=== PATIENT | female | born 1965 | race Caucasian/White ===

== ENCOUNTER 2017-10-14 16:08 | Inpatient (IN) | payer MEDICAID ==
[2014-09-24 03:47] VITALS: BMI 17.8
--- NOTE | ~2017-10-14 | CN ---
PATIENT NAME:PATRICK MCKENNA MEDICAL RECORD: [id number] : 69 LOCATION:[facility] ADMIT DATE: 10/14/17 ACCOUNT: [id number] CONSULTING PHYSICIAN: MARJORIE ELLIOTT MD REFERRING PHYSICIAN: JULIETA HANSEN MD DATE OF CONSULTATION: 10/15/2017 IDENTIFYING DATA: The patient is 52 years old and she is admitted to the hospital on a voluntary basis. CHIEF COMPLAINT: "I don't know why I did something so foolish." HISTORY OF PRESENT ILLNESS: The patient came to the Emergency Room after having taken an overdose. She says that she took some of her home medicines, which include Seroquel. She denies any thoughts to harm herself now. She says she was not sure what she was trying to do at that time. She has been at the hospital for over 24 hours and has not had any further suicidal thoughts. She endorses a lot of depressive symptoms. Her urine drug screen is clean. She says her unhappiness is related to the fact that her son is in custodial and is going to be there for a very long time. She also says she is unhappy because her father a few months ago. MENTAL STATUS EXAMINATION: The patient is awake, alert and oriented to person, place, time, and situation. Her mood is depressed. Her affect is constricted. Thought processes are circumstantial. Memory, concentration, and abstraction abilities are moderately impaired and she denies any active intent to harm herself or others as well as overt psychotic symptoms. ASSESSMENT: 1. Major depression. 2. 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 PLAN: At this time, the patient will be maintained on current medications, which I have reviewed. Her long-term prognosis is guarded. She has been offered inpatient hospitalization, which she declines. I have very strongly encouraged her to reconsider and she has declined. In weighing the relative risks and benefits of this situation, I do not think she meets current criteria for an involuntary hold and I am going to allow her to go home. She does have an appointment with [facility]. She is an active patient there and actively sees a therapist there. She does not have a history of overdose or trying to hurt herself in any other way. She does have a history of psychiatric disease and is followed on an outpatient basis as mentioned above. TRANSINT:[id number] Voice Confirmation ID: [id number] DOCUMENT ID: [id number] MARJORIE ELLIOTT MD at 1418 CC: [id number] DICTATION DATE: 10/15/171835 QUILTER FIXER: 10/16/17 0125 DIS IN 10/15/17 [place] [id number] [place] [id number]
[~2017-10-14 16:08] MED LIST: ATIVAN1 MG; CARDIZEM60 MG PO; DEPAKOTE250 MG PO; HYDROCHLOROTHIA50 MG; IMDUR30 MG PO; LAMICTAL25 MG; NEURONTIN 300300 MG PO; PAXIL20 MG PO; PRAVACHOL40 MG PO; PROAIR HFA8.5 GM INH; SEROQUEL100 MG PO
[2017-10-14 16:29] LABS: BASOPHILS 0.4 % (0-2); EOSINOPHILS 2.7 % (0-7); HEMATOCRIT 38.1 % (36.0-48.0); HEMOGLOBIN 13.5 g/dL (12-16); IMMATURE GRANULOCYTES 0.4 % (0-5); LYMPHOCYTES 26.2 % (15-50); MCHC 35.4 g/dL (31.0-37.0); MONOCYTES 10.1 % (2-11); NEUTROPHILS 60.2 % (40-80); PLATELET COUNT 248 10x3/uL (130-400); RBC 3.97 10x6/uL (4.00-5.40); RDW 12.8 % (11.5-14.5); WBC 7.2 10x3/uL (4.8-10.8)
[2017-10-14 16:47] LABS: ALBUMIN 3.7 g/dL (3.4-5.0); BILIRUBIN - TOTAL 0.36 mg/dL (0.2-1.3); CALCIUM 8.8 mg/dL (8.5-10.1); CARBON DIOXIDE 26.4 mmol/L (21.0-32.0); CREATININE - SERUM 0.9 mg/dL (0.6-1.3); POTASSIUM - SERUM 4.4 mmol/L (3.5-5.1); PROTEIN - SERUM 7.3 g/dL (6.4-8.2); VALPROIC ACID (DEPAKOTE) 52.9 ug/mL (50.0-100.0)
[2017-10-14 16:52] LABS: APPEARANCE HAZY (CLEAR); BILIRUBIN NEGATIVE (NEGATIVE); COLOR YELLOW (YELLOW); GLUCOSE NEGATIVE (NEGATIVE); KETONE NEGATIVE (NEGATIVE); NITRITE NEGATIVE (NEGATIVE); PROTEIN NEGATIVE (NEGATIVE); SPECIFIC GRAVITY 1.005 (1.005-1.020); UROBILINOGEN NORMAL (NORMAL)
[2017-10-14 16:57] LABS: HCG SERUM NEGATIVE (NEGATIVE)
[2017-10-14 17:06] LABS: UDS - AMPHET NEGATIVE QUAL (NEGATIVE); UDS - BARB NEGATIVE QUAL (NEGATIVE); UDS - BENZO NEGATIVE QUAL (NEGATIVE); UDS - COCAINE NEGATIVE QUAL (NEGATIVE); UDS - OPIATE NEGATIVE QUAL (NEGATIVE); UDS - PCP NEGATIVE QUAL (NEGATIVE); UDS - THC NEGATIVE QUAL (NEGATIVE)
[2017-10-15 05:54] LABS: BASOPHILS 0.8 % (0-2); EOSINOPHILS 4.5 % (0-7); HEMATOCRIT 35.7 % (36.0-48.0); HEMOGLOBIN 12.3 g/dL (12-16); IMMATURE GRANULOCYTES 0.2 % (0-5); MCH 33.2 pg (26.0-34.0); MCHC 34.5 g/dL (31.0-37.0); MCV 96.2 fL (80.0-100.0); MONOCYTES 9.4 % (2-11); NEUTROPHILS 53.1 % (40-80); PLATELET COUNT 265 10x3/uL (130-400); RBC 3.71 10x6/uL (4.00-5.40)
[2017-10-15 05:59] LABS: WBC 4.9 10x3/uL (4.8-10.8)
[2017-10-15 06:19] LABS: CALC OSMOLALITY 273 mosm/kg (275-300); CALCIUM 7.9 mg/dL (8.5-10.1); CARBON DIOXIDE 21.9 mmol/L (21.0-32.0); CHLORIDE - SERUM 103 mmol/L (98-107); CREATININE - SERUM 0.7 mg/dL (0.6-1.3); GLUCOSE 115 mg/dL (74-106); POTASSIUM - SERUM 4.1 mmol/L (3.5-5.1); SODIUM 136 mmol/L (136-145); UREA NITROGEN 15 mg/dL (7-18); eGFR NON AFRICAN AMERICAN > 90 mL/min (90-120)
== END 2017-10-15 14:48 | disposition left against medical advice (07) | DRG 917 ==
LOC: D.ER 16:08 → D.EDHOLD 18:35
PROVIDERS: Family Medicine
PROC: 0T9B70Z Drainage of Bladder with Drainage Device, Via Natural or Artificial Opening (ICD-10-PCS; principal; 2017-10-14)
DX: T43.592A Poisoning by other antipsychotics and neuroleptics, intentional self-harm, initial encounter (principal); G93.40 Encephalopathy, unspecified; F31.30 Bipolar disorder, current episode depressed, mild or moderate severity, unspecified; E87.1 Hypo-osmolality and hyponatremia; Y92.009 Unspecified place in unspecified non-institutional (private) residence as the place of occurrence of the external cause; F60.9 Personality disorder, unspecified; I10 Essential (primary) hypertension; F20.9 Schizophrenia, unspecified; D64.9 Anemia, unspecified